=== PATIENT | female | born 1950 | race Caucasian/White ===

== ENCOUNTER 2018-02-04 20:58 | Emergency (ER) | payer MEDICARE ==
[~2018-02-04] VITALS: Ht 175.3 cm; Wt 60.0 kg
[2018-02-04 21:51] VITALS: BP 183/82; PULSE 77; RESP 18; TEMP 99; O2SAT 99
[2018-02-05] MEDS ORDERED: HYDR-3801 PO (00:55)
[2018-02-05] MEDS ORDERED: TOFR50TA PO (00:55)
[2018-02-05] MEDS ORDERED: LOSA50TA2 PO (00:55)
[2018-02-05 01:12] LABS: AUTOMATED NEUTROPHIL # 4.1 TH/MM3 (1.8-7.7); BASOPHIL # 0.1 TH/MM3 (0-0.2); EOSINOPHIL # 0.1 TH/MM3 (0-0.4); EOSINOPHIL % 1.6 % (0.0-4.0); HEMATOCRIT 39.2 % (35.0-46.0); HEMOGLOBIN 13.4 GM/DL (11.6-15.3); LYMPH % 27.9 % (9.0-44.0); LYMPHOCYTE # 1.9 TH/MM3 (1.0-4.8); MEAN CELL VOLUME 95.7 FL (80.0-100.0); MEAN CORPUSCULAR HEMOGLOBIN 32.8 PG (27.0-34.0); MEAN CORPUSCULAR HGB CONC 34.3 % (32.0-36.0); MEAN PLATELET VOLUME 7.3 FL (7.0-11.0); MONO % 10.3 % (0.0-8.0); MONOCYTE # 0.7 TH/MM3 (0-0.9); NEUT % 59.2 % (16.0-70.0); PLATELET COUNT 245 TH/MM3 (150-450); RED BLOOD COUNT 4.09 MIL/MM3 (4.00-5.30); RED CELL DISTRIBUTION WIDTH 12.5 % (11.6-17.2); WHITE BLOOD COUNT 6.9 TH/MM3 (4.0-11.0)
[2018-02-05 01:28] LABS: ALBUMIN 3.8 GM/DL (3.4-5.0); ALT (GPT) 31 U/L (10-53); AST (GOT) 5 U/L (15-37); BICARBONATE 29.6 MEQ/L (21.0-32.0); BLOOD UREA NITROGEN 13 MG/DL (7-18); CALCIUM 9.1 MG/DL (8.5-10.1); CHLORIDE 101 MEQ/L (98-107); CREATININE 0.69 MG/DL (0.50-1.00); GLOMERULAR FILTRATION RATE 85 ML/MIN (>89); GLUCOSE,RANDOM 92 MG/DL (74-106); SODIUM (NA) 138 MEQ/L (136-145)
[2018-02-05 01:38] LABS: ACETAMINOPHEN LESS THAN 2.0 MCG/ML (10.0-30.0); ALKALINE PHOSPHATASE 66 U/L (45-117); TOTAL BILIRUBIN ADULT 0.6 MG/DL (0.2-1.0); TOTAL PROTEIN 7.1 GM/DL (6.4-8.2)
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
[2018-02-05 03:04] VITALS: BP 183/81; PULSE 65
[2018-02-05 09:44] VITALS: BP 177/80; PULSE 76; RESP 18; O2SAT 98
[2018-02-05 14:00] VITALS: BP 190/102
[2018-02-05] MEDS ORDERED: HYDROCHLOROTHIAZIDE 12.5 MG CAP PO ONE (14:00)
[2018-02-05] MEDS ORDERED: LOSARTAN 50 MG TAB PO ONE (14:00)
--- NOTE | 2018-02-05 15:43 | PD ---
History of Present Illness Chief Complaint: Suicide Ideation/Attempt Time Seen by Provider: 14:15 Travel History International Travel<30 Days: No Contact w/Intl Traveler<30days: No Known affected area: No Legal Status Legal Status: Voluntary History of Present Illness: History of Present Illness HPI 67-year-old, single female with history of depression who presents to the ED on a voluntary status requesting a psychiatric evaluation and with complaints suicide ideation and depression. As per ED documentation " the patient denies a plan." It is reported that this patient was discharged from [facility] on February 02 after she received # 4 ECT treatments under the care of Dr. French. After the patient was released from the hospital the daughters felt that she was confused and appeared depressed so they attempted to take her back to [place]. It is reported that she was denied admission and was advised to follow up as an outpatient. The daughter's felt that they wanted her evaluated so they brought her here to [facility]. The patient was monitored in secure environment and she presented no behavioral concerns, no suicidality, no self injurious behavior. Electronic medical record reviewed. No previous contact with [facility] psychiatry. The patient is seen and J pod. Nurse Giovana present during part of the interview. She is alert, oriented, calm and engaging. She is dressed in hospital gown and maintaining basic hygiene. Her speech is clear , logical, goal directed and is of normal rate and tone. There is no evidence of any hallucinations, no delusions, no paranoia. Her mood is mildly depressed and anxious. She states" I got out of the hospital and my daughters brought me here because they felt I was not doing well. I was feeling dizzy and kind of out of it and depressed. She denies that she made any attempts at harming herself. They are trying to sell my house so that I can move into an assisted living facility but that will take some time and they would like me to be admitted for 3-4 weeks." The patient reports that she also had some difficulty getting her imipramine from the pharmacy after her discharge but that it is now available. She denies current suicidal ideation, intent, or plan. She does admit to chronic and persistent suicidal thoughts dating to the . She has had multiple suicidal gestures and attempts with the last being in 2017. The patient at this time plans on continuing her outpatient care at [facility] in [place]. She sees Kailey Courtney and plans on continuing outpatient care with her. I contacted her daughter Ariane at [phone]. Her daughter reports that she would rather have her mother in the hospital as she feels that she has made so many attempts in the past that she will eventually be successful. She also states that she is unable to care for her and can provide supervision for her if her mother were to need 24 hour a day supervision. She does state that the family is attempting to get her moved into an [facility] but that they first have to sell her house. I have advised the family to initiate a safety plan for her mother while she is being placed in an [facility] and this includes making sure that she does not have access to medication, making sure she has family support. I have also advised her that at this time the patient does not meet criteria to be in the hospital. She tells me that she will have her mother Hazel acted and brought back to the hospital. I did speak to her about an ex-parte, in the event that she felt her mother was at risk. PFSH Past Medical History Anxiety: Yes Depression: Yes High Cholesterol: Yes Diminished Hearing: No Hypertension: Yes Tetanus Vaccination: < 5 Years Influenza Vaccination: No ?: Not LMP: menapause Tubal Ligation: Yes Past Surgical History Eye Surgery: Yes (catracts, left eye (straightened)) Psychiatric History Psychiatric History Hx Psychiatric Treatment: Pt has extensive psychiatric treatment history dating back to 1989. Reports multiple past suicidal gestures and attempts. Reports ECT treatment in 2017 and again in January 2018. Currently sees Kailey Courtney at [facility] in [place] and has been seeing her for the past 5 months History of Inpatient Treatment: Yes Guns or firearms in home: No Social History Single, mother of 2. She is currently on Social Security and stopped working approximately 1 year ago. Hx Alcohol Use: No Hx Tobacco Use: Yes Hx Substance Use: No Hx of Substance Use Treatment: No Allergies-Medications (Allergen,Severity, Reaction): Coded Allergies: No Known Allergies (Unverified , 02/05/18) Reported Meds & Prescriptions Reported Meds & Active Scripts Active Reported Tofranil (Imipramine HCl) 50 Mg Tab 175 Mg PO HS Losartan-Hydrochlorothiazide 50-12.5 Mg Tab 1 Tab PO DAILY Hydralazine (Hydralazine HCl) 100 Mg Tab 50 Mg PO TID Take with meals Mental Status Examination Appearance: Appropriate Consciousness: Alert Orientation: x4 Motor Activity: Normal gait Speech: Unremarkable Language: Adequate Fund of Knowledge: Adequate Attention and Concentration: Adequate Memory: Unremarkable Mood: Appropriate, Sad, Anxious Affect: Appropriate Thought Process & Associations: Intact, Logical, Goal directed Thought Content: Appropriate Hallucination Type: None Delusion Type: None Suicidal Ideation: No Suicidal Plan: No Suicidal Intention: No Homicidal Ideation: No Homicidal Plan: No Homicidal Intention: No Insight: Adequate Judgment: Adequate MDM Medical Decision Making Medical Record Reviewed: Yes Assessment/Plan 67-year-old, single female with history of depression who presents to the ED on a voluntary status requesting a psychiatric evaluation and with complaints suicide ideation and depression. As per ED documentation " the patient denies a plan." It is reported that this patient was discharged from [facility] on February 02 after she received # 4 ECT treatments under the care of Dr. French. After the patient was released from the hospital the daughters felt that she was confused and appeared depressed so they attempted to take her back to [place]. It is reported that she was denied admission and was advised to follow up as an outpatient. The daughter's felt that they wanted her evaluated so they brought her here to [facility]. The patient was monitored in secure environment and she presented no behavioral concerns, no suicidality, no self injurious behavior. The patient did not present any cognitive impairment. She did not present any psychosis or charity. The patient denied suicidal or homicidal ideation, intent or plan. The patient was future oriented and states" I want to get better and I want to improve.". We worked on a general safety plan and it is included in her chart. The patient state that she has support from a neighbor call Galilea that she feels comfortable contacting her in case she felt unsafe. At this time the patient does not meet criteria for inpatient psychiatric treatment. She will be discharged with instructions if any changes or concerns she is to return to the emergency department. Case consulted with Dr. Ralph Gama who agrees with assessment and disposition. Orders Orders Complete Blood Count With Diff (02/05/18 00:47) Comprehensive Metabolic Panel (02/05/18 00:47) Thyroid Stimulating Hormone (02/05/18 00:47) Psych Screen (02/05/18 00:47) Drug Screen, Random Urine (02/05/18 00:47) Alcohol (Ethanol) (02/05/18 00:47) Salicylates (Aspirin) (02/05/18 00:47) Tylenol (Acetaminophen) (02/05/18 00:47) Diet Regular Basic (02/05/18 Breakfast) Diet Regular Basic (02/05/18 Lunch) Losartan (Cozaar) (02/05/18 14:00) Hydrochlorothiazide (Microzide) (02/05/18 14:00) Hydroxyzine Pamoate (Vistaril) (02/05/18 14:00) Diet Regular Basic (02/05/18 Dinner) Results Vital Signs Date Time Temp Pulse Resp B/P (MAP) Pulse Ox O2 Delivery O2 Flow Rate FiO2 02/05/18 14:00 190/102 (131) 02/05/18 09:44 76 18 177/80 (112) 98 Room Air 02/04/18 21:51 99.0 77 18 183/82 (115) 99 Laboratory Tests Test 02/05/18 01:00 White Blood Count 6.9 Red Blood Count 4.09 Hemoglobin 13.4 Hematocrit 39.2 Mean Corpuscular Volume 95.7 Mean Corpuscular Hemoglobin 32.8 Mean Corpuscular Hemoglobin Concent 34.3 Red Cell Distribution Width 12.5 Platelet Count 245 Mean Platelet Volume 7.3 Neutrophils (%) (Auto) 59.2 Lymphocytes (%) (Auto) 27.9 Monocytes (%) (Auto) 10.3 Eosinophils (%) (Auto) 1.6 Basophils (%) (Auto) 1.0 Neutrophils # (Auto) 4.1 Lymphocytes # (Auto) 1.9 Monocytes # (Auto) 0.7 Eosinophils # (Auto) 0.1 Basophils # (Auto) 0.1 CBC Comment DIFF FINAL Differential Comment Blood Urea Nitrogen 13 Creatinine 0.69 Random Glucose 92 Total Protein 7.1 Albumin 3.8 Calcium Level 9.1 Alkaline Phosphatase 66 Aspartate Amino Transf (AST/SGOT) 5 Alanine Aminotransferase (ALT/SGPT) 31 Total Bilirubin 0.6 Sodium Level 138 Potassium Level 3.5 Chloride Level 101 Carbon Dioxide Level 29.6 Anion Gap 7 Estimat Glomerular Filtration Rate 85 Thyroid Stimulating Hormone 3rd Gen 1.480 Salicylates Level 4.7 Urine Opiates Screen NEG Acetaminophen Level LESS THAN 2.0 Urine Barbiturates Screen NEG Urine Amphetamines Screen NEG Urine Benzodiazepines Screen NEG Urine Cocaine Screen NEG Urine Cannabinoids Screen NEG Ethyl Alcohol Level LESS THAN 3 Diagnosis Primary Impression: Major depressive disorder, recurrent Ruled Out: Suicidal ideation Psychiatrically Cleared: Yes Med/ Other Pt Specific Info: No Change to Meds Disposition: 01 DISCHARGE HOME Condition: Stable Problem Qualifiers Primary Impression: Major depressive disorder, recurrent Qualified Codes: F33.0 - Major depressive disorder, recurrent, mild Daisy Hoff [employer] Feb 05, 2018 15:43
[2018-02-05 16:02] VITALS: BP 183/81; PULSE 65
--- NOTE | 2018-02-05 16:14 | PD ---
Physical Exam Date Seen by Provider: Feb 05, 2018 Time Seen by Provider: 16:13 Narrative 67-year-old female here for voluntary psychiatric evaluation, previously medically cleared, has been seen and evaluated by psychiatric staff and felt to be psychiatrically stable for discharge at this time. Patient remains medically stable at this time. Psychiatric follow-up will be based on psychiatric note. Data Data Last Documented VS Vital Signs Date Time Temp Pulse Resp B/P (MAP) Pulse Ox O2 Delivery O2 Flow Rate FiO2 02/05/18 14:00 190/102 (131) 02/05/18 09:44 76 18 98 Room Air 02/04/18 21:51 99.0 Orders Orders Complete Blood Count With Diff (02/05/18 00:47) Comprehensive Metabolic Panel (02/05/18 00:47) Thyroid Stimulating Hormone (02/05/18 00:47) Psych Screen (02/05/18 00:47) Drug Screen, Random Urine (02/05/18 00:47) Alcohol (Ethanol) (02/05/18 00:47) Salicylates (Aspirin) (02/05/18 00:47) Tylenol (Acetaminophen) (02/05/18 00:47) Diet Regular Basic (02/05/18 Breakfast) Diet Regular Basic (02/05/18 Lunch) Losartan (Cozaar) (02/05/18 14:00) Hydrochlorothiazide (Microzide) (02/05/18 14:00) Hydroxyzine Pamoate (Vistaril) (02/05/18 14:00) Diet Regular Basic (02/05/18 Dinner) Labs Laboratory Tests Test 02/05/18 01:00 White Blood Count 6.9 TH/MM3 Red Blood Count 4.09 MIL/MM3 Hemoglobin 13.4 GM/DL Hematocrit 39.2 % Mean Corpuscular Volume 95.7 FL Mean Corpuscular Hemoglobin 32.8 PG Mean Corpuscular Hemoglobin Concent 34.3 % Red Cell Distribution Width 12.5 % Platelet Count 245 TH/MM3 Mean Platelet Volume 7.3 FL Neutrophils (%) (Auto) 59.2 % Lymphocytes (%) (Auto) 27.9 % Monocytes (%) (Auto) 10.3 % Eosinophils (%) (Auto) 1.6 % Basophils (%) (Auto) 1.0 % Neutrophils # (Auto) 4.1 TH/MM3 Lymphocytes # (Auto) 1.9 TH/MM3 Monocytes # (Auto) 0.7 TH/MM3 Eosinophils # (Auto) 0.1 TH/MM3 Basophils # (Auto) 0.1 TH/MM3 CBC Comment DIFF FINAL Differential Comment Blood Urea Nitrogen 13 MG/DL Creatinine 0.69 MG/DL Random Glucose 92 MG/DL Total Protein 7.1 GM/DL Albumin 3.8 GM/DL Calcium Level 9.1 MG/DL Alkaline Phosphatase 66 U/L Aspartate Amino Transf (AST/SGOT) 5 U/L Alanine Aminotransferase (ALT/SGPT) 31 U/L Total Bilirubin 0.6 MG/DL Sodium Level 138 MEQ/L Potassium Level 3.5 MEQ/L Chloride Level 101 MEQ/L Carbon Dioxide Level 29.6 MEQ/L Anion Gap 7 MEQ/L Estimat Glomerular Filtration Rate 85 ML/MIN Thyroid Stimulating Hormone 3rd Gen 1.480 uIU/ML Salicylates Level 4.7 MG/DL Urine Opiates Screen NEG Acetaminophen Level LESS THAN 2.0 MCG/ML Urine Barbiturates Screen NEG Urine Amphetamines Screen NEG Urine Benzodiazepines Screen NEG Urine Cocaine Screen NEG Urine Cannabinoids Screen NEG Ethyl Alcohol Level LESS THAN 3 MG/DL [facility] Medical Record Reviewed: Yes Supervised Visit with JOSE: Yes Narrative Course 67-year-old female here for voluntary psychiatric evaluation, previously medically cleared, has been seen and evaluated by psychiatric staff and felt to be psychiatrically stable for discharge at this time. Patient remains medically stable at this time. Psychiatric follow-up will be based on psychiatric note. Diagnosis Primary Impression: Major depressive disorder, recurrent Qualified Codes: F33.0 - Major depressive disorder, recurrent, mild Ruled Out: Suicidal ideation Patient Instructions: General Instructions Disposition: DISCHARGE HOME Condition: Stable Bg Beckford Feb 05, 2018 16:14
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
== END 2018-02-05 17:35 | disposition home or self-care (01) ==
LOC: NEPD 20:58 → NEPJ 02-05 17:35
DX: F33.0 Major depressive disorder, recurrent, mild (principal); I10 Essential (primary) hypertension; Z72.0 Tobacco use; Z79.899 Other long term (current) drug therapy
CPT/HCPCS: 80053; 80307; 84443; 85025; 99283